=== PATIENT | male | born 1990 | race Hispanic/Latino ===

== ENCOUNTER 2018-07-12 05:43 | Emergency (ER) | payer OTHER ==
[2018-07-12] MEDS ORDERED: IBUPROFEN 600 MG TABLET ONE (05:54)
[2018-07-12] MEDS ORDERED: ACETAMINOPHEN EXTRA STRENGTH 500 MG TABLET ONE (05:54)
== END 2018-07-12 06:54 | disposition home or self-care (01) ==
LOC: EDH 05:43
DX: B34.9 Viral infection, unspecified (principal); Z90.49 Acquired absence of other specified parts of digestive tract
CPT/HCPCS: 87804